=== PATIENT | female | born 1985 | race Caucasian/White ===

== ENCOUNTER 2016-11-02 09:24 | Emergency (ER) | payer MEDICARE, MEDICAID ==
[~2016-11-02 09:24] MED LIST: ABILIFY PO; ACYCLOVIR400 M1 PO; ATIVAN PO; ATIVAN0.5 M1 PO; AUGMENTIN 875-1 EAC2 PO; AZITHROMYCIN250 MG PO; BACTRIM DS TAB1 EAC2 PO; BIPOLAR MEDICATION PO; BREO ELLIPTA 11 EAC1 IH; BUSPAR15 MG PO; BUSPIRONE HCL15 M1 PO; CEROVITE ADVANC1 TAB PO; CIPRO500 M1 PO; CIPRO500 MG PO; CLINDAMYCIN HC300 M2 PO; DEPAKOTE250 MG PO; DOC-Q-LACE100 M1 PO; DORYX100 MG PO; FLAGYL500 MG PO; GABAPENTIN400 MG PO; HYDROCODON-ACE1 EA16 PO; IBUPROFEN600 M1 PO; INVEGA6 MG/BOTTL PO; LAMICTAL150 M1 PO; LAMICTAL200 M2 PO; LAMOTRIGINE100 MG PO; METFORMIN HCL500 M2 PO; MIRENA1 EACH IY; NORCO 5-325 TA1 EACH PO; ORTHO TRI-7 DAYS X PO; ORTHO TRI-CYCL1 EAC1 PO; PREDNISONE5 M2 PO; PROZAC20 M1 PO; PROZAC20 M3 PO; PROZAC40 MG PO; RECLIPSEN1 TAB PO; RISPERDAL0.5 M1 PO; TERAZOL 745 GM VG; TOPAMAX25 M1 PO; TOPAMAX25 M2; TOPAMAX25 M2 PO; TRAMADOL HCL50 M2 PO; TRAMADOL HCL50 MG PO; TRAZODONE HCL100 M1; TRAZODONE HCL100 M1 PO; TRAZODONE HCL100 MG PO; TRAZODONE100 MG PO; VENTOLIN HFA18 G2 INH; VENTOLIN HFA18 GM INH; [UNRECOGNIZED DRUG - REMARK]
[2016-11-02] MEDS ORDERED: ZYPREXA5 M1 PO (11:41)
[2016-11-02] MEDS ORDERED: WELLBUTRIN XL150 M1 PO (11:41)
[2016-11-02] MEDS ORDERED: LIPITOR10 M1 PO (11:42)
[2016-11-02] MEDS ORDERED: ORTHO-CYCLEN 21 EACH PO (11:42)
[2016-11-02] MEDS ORDERED: LAMICTAL25 M2 PO (12:04)
[2016-11-02] MEDS ORDERED: LORYNA PO (12:09)
[2016-11-02 12:29] LABS: BASO % 0.2 % (0-2); EOS % 1.8 % (0-7); EOSINOPHIL ABSOLUTE COUNT 0.3 tho/cmm (0.0-0.7); IMMATURE GRANULOCYTES ABSOLUTE 0.05 tho/cmm (0-0.03); IMMATURE GRANULOCYTES PERCENT 0.3 % (0-0.3); LYMPH % 15.2 % (20-45); LYMPH ABSOLUTE COUNT 2.6 tho/cmm (0.8-4.5); MCHC MEAN CORPUSCULAR HGB CONC 34.1 % (32.0-36.0); MEAN PLATELET VOLUME 9.8 cmc (9.4-12.4); MONO % 5.1 % (0-12); MONOCYTE ABSOLUTE COUNT 0.9 tho/cmm (0.0-1.2); NEUTROPHILS % 77.4 % (40-80); PLATELET COUNT 314 tho/cmm (150-450); RED BLOOD COUNT 4.66 mil/cmm (4.00-5.20); RED CELL DISTRIBUTION WIDTH 13.2 % (12.4-16.4); WHITE BLOOD COUNT 16.8 tho/cmm (4.0-10.0)
[2016-11-02] MEDS ORDERED: ASPIRIN EC81 MG PO (12:31)
[2016-11-02 12:34] LABS: URINE BILIRUBIN NEGATIVE (NEG); URINE BLOOD NEGATIVE (NEG); URINE GLUCOSE (UA) NEGATIVE (NEG); URINE KETONE NEGATIVE (NEG); URINE LEUKOCYTE ESTERASE NEGATIVE (NEG); URINE NITRITE NEGATIVE (NEG); URINE PROTEIN NEGATIVE (NEG); URINE SPECIFIC GRAVITY 1.015 (1.003-1.030)
[2016-11-02 12:36] LABS: URINE APPEARANCE CLEAR; URINE COLOR YELLOW
[2016-11-02 12:48] LABS: ALB/GLOB RATIO 0.7 (0.8-2.0); ALBUMIN 3.1 g/dl (3.5-5.0); ALKALINE PHOSPHATASE 66 U/L (33-138); ALT/SGPT 16 U/L (12-78); ANION GAP 11 mmol/L (0-20); AST/SGOT 11 U/L (10-40); BILIRUBIN,TOTAL 0.4 mg/dl (0-1.5); BLOOD UREA NITROGEN 13 mg/dl (6-24); CALCIUM 8.4 mg/dl (8.5-10.5); CARBON DIOXIDE-VENOUS 24 mmol/L (22-32); CHLORIDE 108 mmol/l (96-110); CREATININE 0.84 mg/dl (0.50-1.10); GLUCOSE 108 mg/dL (70-110); LIPASE 93 U/L (73-393); POTASSIUM 4.4 mmol/L (3.7-5.1); SODIUM 139 mmol/L (135-145); eGFR VALUE FOR BLACK >90 mL/Min
[2016-11-02 12:50] LABS: PREGNANCY-SERUM NEGATIVE (NEGATIVE)
[2016-11-02] MEDS ORDERED: FLAGYL500 M1 PO (14:01)
[2016-11-02] MEDS ORDERED: BACTRIM DS TAB1 EAC2 PO (14:01)
== END 2016-11-02 14:17 ==
LOC: EDMED 09:24
PROVIDERS: Physician Assistant
DX: K57.92 Diverticulitis of intestine, part unspecified, without perforation or abscess without bleeding (principal); E11.9 Type 2 diabetes mellitus without complications; I10 Essential (primary) hypertension; E78.5 Hyperlipidemia, unspecified; J45.909 Unspecified asthma, uncomplicated; F31.9 Bipolar disorder, unspecified; F43.10 Post-traumatic stress disorder, unspecified; Z90.49 Acquired absence of other specified parts of digestive tract; Z98.890 Other specified postprocedural states; Z79.51 Long term (current) use of inhaled steroids; Z79.899 Other long term (current) drug therapy; Z79.82 Long term (current) use of aspirin; F17.210 Nicotine dependence, cigarettes, uncomplicated
CPT/HCPCS: J1885; J7030; Q9967